=== PATIENT | female | born 1990 | race Two or more races ===

== ENCOUNTER → 2024-09-13 | Outpatient (CLI) | payer BC, SELFPAY ==
[2024-09-13 13:22] LABS: Alanine Aminotransferase 8 U/L (10-49); Albumin, Serum 4.5 gm/dL (3.5-5.0); Albumin/Globulin Ratio 1.6 (1.2-2.2); Alkaline Phosphatase 83 U/L (46-116); Anion Gap 7 (7-16); Aspartate Amino Transferase 16 U/L (0-34); BUN/Creatinine Ratio 11 Ratio (12-20); Bilirubin,Total 0.8 mg/dL (0.3-1.2); Blood Urea Nitrogen 9 mg/dL (9-23); Calcium 9.1 mg/dL (8.3-10.6); Calcium (Corrected) 9.1 mg/dL (8.5-10.1); Carbon Dioxide 25.5 mMol/L (20.0-31.0); Cardiac Risk Estimate 3.8 RATIO (3.7-5.6); Chloride 110 mMol/L (98-107); Cholesterol 192 mg/dL (132-200); Creatinine (Component) 0.8 mg/dL (0.6-1.3); Free T4 (Free Thyroxine) 1.18 ng/dL (0.89-1.76); Globulin 2.9 gm/dL (2.3-3.5); Glucose 97 mg/dL (74-106); HDL Cholesterol 51 mg/dL (40-60); LDL Cholesterol,Calculated 124 mg/dL (0-130); Osmolality,Calculated 281 (275-295); Potassium 4.4 mMol/L (3.4-5.1); Sodium 142 mMol/L (136-145); Thyroid Stimulating Hormone 4.21 uIU/mL (0.55-4.78); Total Protein 7.4 gm/dL (5.7-8.2); Triglycerides 87 mg/dL (30-150); eGFR > 60 See Note
[2024-09-19 07:02] LABS: Levetiracetam (Keppra)* 7.3 mcg/mL (6.0-46.0)
== END | disposition home or self-care (01) ==
LOC: COPL 10:55
PROVIDERS: PCP Family Medicine; Referring Provider Family Medicine; Visit Provider Family Medicine
DX: G40.301 Generalized idiopathic epilepsy and epileptic syndromes, not intractable, with status epilepticus (principal); E78.1 Pure hyperglyceridemia; E03.2 Hypothyroidism due to medicaments and other exogenous substances; Z13.1 Encounter for screening for diabetes mellitus
CPT/HCPCS: 36415; 80053; 80061; 80177; 84439; 84443

== ENCOUNTER → 2024-09-27 | Outpatient (CLI) | payer BC, SELFPAY ==
--- NOTE | 2024-09-27 15:20 | XR_ITS ---
Examination: Foot, left, 3 views Technique: AP, oblique, lateral views foot, 3 views Date and time of exam: September 27, 2024 1530 hours INDICATIONS: Left foot pain beginning 4 days ago FINDINGS: No fracture or dislocation No foreign body. No cortical bone destruction No erosive or other significant arthritic change IMPRESSION: No fracture No erosive or other significant arthritic change
== END | disposition home or self-care (01) ==
PROVIDERS: PCP Family Medicine; Referring Provider Family Medicine; Visit Provider Family Medicine
DX: M79.672 Pain in left foot (principal)
CPT/HCPCS: 73630

== ENCOUNTER → 2024-10-05 | Outpatient (CLI) | payer BC, SELFPAY ==
[2024-10-05 17:15] LABS: BVAG Candida Negative (Negative); Bacterial Vaginosis Markers Negative (Negative); Candida glabrata Negative (Negative); Candida krusei PCR Negative (Negative); Trichomonas Negative (Negative)
== END | disposition home or self-care (01) ==
LOC: SLDO 14:15
PROVIDERS: Referring Provider Specialist; Visit Provider Specialist
DX: A59.01 Trichomonal vulvovaginitis (principal); B37.89 Other sites of candidiasis; N76.0 Acute vaginitis
CPT/HCPCS: 81514

== ENCOUNTER → 2024-10-12 | Outpatient (CLI) | payer BC, SELFPAY ==
[2024-10-12 09:39] LABS: Basophils # (Auto) 0.1 Thou/mm3 (0.0-0.2); Basophils % (Auto) 1 % (0-2.5); Eosinophils # (Auto) 0.1 Thou/mm3 (0.0-0.5); Eosinophils % (Auto) 1 % (0-10); Hematocrit 32.9 % (36.0-46.0); Hemoglobin 10.2 g/dL (12.0-16.0); Immature Granulocytes % (Auto) 0 % (0-0); Immature Granulocytes Auto 0.02 Thou/mm3 (0.00-0.00); Lymphocytes # (Auto) 1.9 Thou/mm3 (1.0-4.8); Lymphocytes % (Auto) 21 % (10-50); Mean Corpuscular Hemoglobin 22.7 pg (25.0-35.0); Mean Corpuscular Volume 73 fL (80-100); Monocytes # (Auto) 0.7 Thou/mm3 (0.0-0.8); Monocytes % (Auto) 8 % (0-12); Neutrophils # (Auto) 6.1 Thou/mm3 (1.8-7.7); Neutrophils % (Auto) 69 % (37-80); Nucleated Red Blood Cell % 0 /100 WBC (0); Platelet Count 384 Thou/mm3 (140-440); RDW Standard Deviation 47.3 fL (36.4-46.3); Red Blood Count 4.49 Miln/mm3 (4.00-5.20); White Blood Count 8.8 Thou/mm3 (3.6-11.0)
[2024-10-12 09:45] LABS: Glucose Estimated Average 111 mg/dL (80-131); Hemoglobin A1C 5.5 % Hgb (4.8-6.0)
[2024-10-12 10:06] LABS: Alanine Aminotransferase 8 U/L (10-49); Albumin, Serum 4.7 gm/dL (3.5-5.0); Albumin/Globulin Ratio 1.6 (1.2-2.2); Alkaline Phosphatase 87 U/L (46-116); Anion Gap 12 (7-16); Aspartate Amino Transferase 18 U/L (0-34); BUN/Creatinine Ratio 13 Ratio (12-20); Beta HCG,Quantitative < 1 mIU/mL (<5.0); Bilirubin,Total 0.5 mg/dL (0.3-1.2); Blood Urea Nitrogen 10 mg/dL (9-23); Calcium 8.8 mg/dL (8.3-10.6); Calcium (Corrected) 8.8 mg/dL (8.5-10.1); Carbon Dioxide 25.5 mMol/L (20.0-31.0); Chloride 106 mMol/L (98-107); Creatinine (Component) 0.8 mg/dL (0.6-1.3); Free T4 (Free Thyroxine) 0.92 ng/dL (0.89-1.76); Globulin 2.9 gm/dL (2.3-3.5); Glucose 120 mg/dL (74-106); Osmolality,Calculated 284 (275-295); Potassium 3.6 mMol/L (3.4-5.1); Sodium 143 mMol/L (136-145); Thyroid Stimulating Hormone 16.18 uIU/mL (0.55-4.78); Total Protein 7.6 gm/dL (5.7-8.2); eGFR > 60 See Note
[2024-10-24 07:38] LABS: DHEA Sulfate* 79 mcg/dL (23-266); Estrogen, Total, Serum* 296 pg/mL; Luteinizing Hormone* 1.4 mIU/mL; Progesterone,LC/MS* 11.9 ng/mL; Prolactin* 14.8 ng/mL; Testosterone, Free,Dialysis 2.6 pg/mL (0.1-6.4); Testosterone, Total, Dialysis 21 ng/dL (2-45)
== END | disposition home or self-care (01) ==
LOC: COPL 08:31
PROVIDERS: PCP Family Medicine; Referring Provider Specialist; Visit Provider Specialist
DX: N93.9 Abnormal uterine and vaginal bleeding, unspecified (principal)
CPT/HCPCS: 36415; 80053; 82627; 82672; 83001; 83002; 83036; 84144; 84146; 84402; 84403; 84439; 84443; 84702; 85025

== ENCOUNTER → 2024-11-24 | Outpatient (CLI) | payer BC, SELFPAY ==
--- NOTE | 2024-11-24 10:56 | XR_ITS ---
Examination: Abdomen AP single view Technique: AP portable supine abdomen, single view Exam date and time: November 24, 2024 1115 hours INDICATIONS: Abdominal pain beginning 10 days ago FINDINGS: Moderate stool throughout the colon. No obstruction No free air IMPRESSION: Nonobstructive bowel gas pattern
[2024-11-24 11:28] LABS: Free T4 (Free Thyroxine) 1.12 ng/dL (0.89-1.76); Thyroid Stimulating Hormone 8.63 uIU/mL (0.55-4.78)
== END | disposition home or self-care (01) ==
LOC: CDIM 10:23
PROVIDERS: PCP Family Medicine; Referring Provider Family Medicine; Visit Provider Family Medicine
DX: R10.11 Right upper quadrant pain (principal); E03.2 Hypothyroidism due to medicaments and other exogenous substances
CPT/HCPCS: 36415; 74018; 84439; 84443

== ENCOUNTER 2024-12-20 05:35 | Day surgery (SDC) | payer BC, SELFPAY ==
--- NOTE | 2024-12-17 14:05 | ESHP_ITS ---
RE: OBDULIA PACHECO : 1990 DATE OF ADMISSION: 12/20/2024 HISTORY OF PRESENT ILLNESS: This is a 33-year-old who has abnormal uterine bleeding and a submucous myoma. She also has iron deficiency anemia. She presents for removal of submucous myoma and endometrial ablation. The patient declines future fertility. ALLERGIES: PENICILLIN. PAST MEDICAL HISTORY: Seizure disorder, pituitary adenoma, polycystic ovarian disease, subclinical hypothyroidism, iron deficiency anemia. PAST SURGICAL HISTORY: Transsphenoidal partial hypophysectomy for prolactinoma. MEDICATIONS: 1. Keppra 1000 mg one p.o. b.i.d. 2. Levothyroxine 25 mcg one p.o. daily. SOCIAL HISTORY: The patient denies any alcohol, drug use or smoking. She has a same-sex partner. FAMILY HISTORY: Ovarian cancer, skin cancer, diabetes, hypertension, hypothyroidism, lymphoma, and bone cancer, delivery in 2019. OBSTETRIC HISTORY: In 04/2019, 40-week, delivery. REVIEW OF SYSTEMS: She denies any chest pain, palpitations, cough, fever, or shortness of breath or lower extremity pain. She denies any headache, change in vision or right upper quadrant pain. PHYSICAL EXAMINATION: VITAL SIGNS: Blood pressure 110/70, heart rate 88, respirations 18, temperature 98.6. HEENT: Oropharynx and sclerae are clear. LUNGS: Clear to auscultation bilaterally. HEART: Regular rate and rhythm. ABDOMEN: Nontender. Old Pfannenstiel scar noted. EXTREMITIES: Nontender. SKIN: No gross rashes or lesions. NEUROLOGIC: No focal deficits. ASSESSMENT AND PLAN: Abnormal uterine bleeding, submucous myoma. PLAN: Hysteroscopy, MyoSure removal of submucous myoma, fractional dilatation and curettage, and NovaSure endometrial ablation. Informed consent was obtained. The patient made aware of the risks, complications, alternatives, and benefits of the proposed procedure. She agrees. She is aware of the risk of injury to bowel or bladder, adjacent organs, pulmonary embolism, deep vein thrombosis, pelvic infection, reoperation to repair injury to internal organs, anesthesia complications, possibility that a laparotomy needs to be performed to repair organs or controlled bleeding and the possibility of the procedure is not able to be completed. Due to severe adhesions or technical difficulties, she verbalized understanding and agrees to proceed with the procedure with an understanding of the risks and complications. DT: 13:06:08 TT: 13:57:00 Ref: [id number] - TID: [id number] MTDShawn
[2024-12-19 08:32] VITALS: BMI 35.9
[2024-12-19 09:21] LABS: Basophils # (Auto) 0.0 Thou/mm3 (0.0-0.2); Basophils % (Auto) 1 % (0-2.5); Eosinophils # (Auto) 0.2 Thou/mm3 (0.0-0.5); Eosinophils % (Auto) 2 % (0-10); Hematocrit 33.1 % (36.0-46.0); Hemoglobin 9.8 g/dL (12.0-16.0); Immature Granulocytes Auto 0.01 Thou/mm3 (0.00-0.00); Lymphocytes # (Auto) 2.1 Thou/mm3 (1.0-4.8); Lymphocytes % (Auto) 33 % (10-50); Mean Corpuscular HGB Conc 29.6 g/dl (31.0-37.0); Mean Corpuscular Hemoglobin 21.8 pg (25.0-35.0); Mean Corpuscular Volume 74 fL (80-100); Monocytes # (Auto) 0.5 Thou/mm3 (0.0-0.8); Monocytes % (Auto) 7 % (0-12); Neutrophils # (Auto) 3.7 Thou/mm3 (1.8-7.7); Neutrophils % (Auto) 57 % (37-80); Nucleated Red Blood Cell # 0.00 Thou/mm3 (0.00-0.00); Nucleated Red Blood Cell % 0 /100 WBC (0); Platelet Count 372 Thou/mm3 (140-440); RDW Standard Deviation 47.7 fL (36.4-46.3); Red Blood Count 4.49 Miln/mm3 (4.00-5.20); White Blood Count 6.5 Thou/mm3 (3.6-11.0)
[2024-12-19 09:40] LABS: INR 1.0 (0.9-1.3); Partial Thromboplastin Time 25.5 Seconds (22.0-36.0); Prothrombin Time 10.8 Seconds (9.0-12.2)
[2024-12-19 09:48] LABS: Alanine Aminotransferase 14 U/L (10-49); Albumin, Serum 4.5 gm/dL (3.5-5.0); Albumin/Globulin Ratio 1.7 (1.2-2.2); Alkaline Phosphatase 83 U/L (46-116); Anion Gap 10 (7-16); Aspartate Amino Transferase 20 U/L (0-34); BUN/Creatinine Ratio 11 Ratio (12-20); Beta HCG,Quantitative < 1 mIU/mL (<5.0); Bilirubin,Total 0.5 mg/dL (0.3-1.2); Blood Urea Nitrogen 8 mg/dL (9-23); Calcium 9.6 mg/dL (8.3-10.6); Calcium (Corrected) 9.6 mg/dL (8.5-10.1); Carbon Dioxide 27.1 mMol/L (20.0-31.0); Chloride 107 mMol/L (98-107); Creatinine (Component) 0.7 mg/dL (0.6-1.3); Estimated Creatinine Clearance 110.7 mL/min (>60); Globulin 2.6 gm/dL (2.3-3.5); Glucose 101 mg/dL (74-106); Osmolality,Calculated 285 (275-295); Potassium 4.0 mMol/L (3.4-5.1); Sodium 144 mMol/L (136-145); Total Protein 7.1 gm/dL (5.7-8.2); eGFR > 60 See Note
[2024-12-20] VITALS (7 sets, daily range): BP systolic 128–145; BP diastolic 64–88; PULSE 81–98; RESP 14–20; TEMP 36.3–36.8; O2SAT 97–100; BMI 36.9
[2024-12-20] MEDS: RINGERS LACTATED 1000 ML 1,000 ML 30 ML IV (06:41)
--- NOTE | 2024-12-20 07:15 | CHAP ---
Visited briefly with patient and had a prayer for the upcoming procedure.
--- NOTE | 2024-12-20 08:04 | PD.GYNPROC ---
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 She was placed in the dorsal lithotomy position and prepped and draped you sterile fashion. A timeout was performed. A bivalve speculum was inserted. A single-tooth tenaculum was used to grasp the antilipid the cervix. The uterine cavity was sounded to 8.0 cm. The cervical length measured 3.0 cm. The cervix was dilated to accommodate the 5.5 mm Omni hysteroscope. Using the Aquilex system and normal saline as the distending media and the hysteroscopy was performed and 2 endometrial polyps were visualized in the uterine cavity. There were no submucous myomas visualized. The endometrial polyps were located at the 9 o'clock position in the mid fundal aspect of the uterus in the lower uterine segment. The broad-based polyp at the 8 o'clock position resembled a submucous myoma but was clearly a polyp. Using the MyoSure reach device the polypectomy was performed. The fluid deficit at the end of the MyoSure procedure was 0. The endocervix was curetted and specimen sent to pathology. The uterine cavity was curetted and specimen sent to pathology. The NovaSure catheter was plugged into the controller. It went through its purge cycle. The catheter was appropriately seated in the uterine cavity. The cavity length was 5.0 cm the cavity width was 2.6 cm the power setting was 72 W. The carbon oxide cavity integrity assessment test was performed. The the uterine cavity was intact. The controller was enabled and the ablation was performed for total of 2 minutes before the controller shut off. The array was retracted into the sheath and the catheter was removed from the uterine cavity. The array was redeployed and found to be complete and intact. There was bleeding at the anterior lip of the cervix at the site of the tenaculum and using the Bovie cautery hemostasis was achieved. There was no bleeding at the end of the procedure. All instruments were removed from the vagina. She was reversed from general anesthesia in supine position and transferred to the cover room in stable condition. She tolerated the procedure well. Counts were correct. I discussed with the patient's family the nature of her condition, the intraoperative findings, the expectation for recovery, all questions answered. Specimen: other (1. Endometrial polyps. 2. Endocervical curettings. 3. Endometrial curettings. ) Estimated blood loss (ml): 3 Findings: Grossly normal-appearing cervix and vagina. Uterus anteverted sounded to 8.0 cm Cervical length 3.0 cm Uterine cavity length was 5.0 cm Uterine cavity width was 2.6 cm Duration of ablation was 2 minutes and 0 seconds. Power setting 72 W Fluid deficit 0 Endometrial polyps: At 9 and 8:00 measuring approximately 5 mm x 5 mm each Complications: none Surgical staff Operation Date: 12/20/24 07:30 Case Staff Anesthesiologist: David Yañez Diagnosis Discharge Diagnosis (1) Status post endometrial ablation: Status: Acute (2) Abnormal uterine bleeding due to endometrial polyp: Status: Acute Problem List Completed Was Problem List Reviewed/Reconciled?: Yes
--- NOTE | 2024-12-20 08:10 | SUR.PHASEI ---
0810 Patient arrived to recovery resting comfortably [place], on oxygen 10L via oxy mask with an oral airway in place, breathing unlabored, vital signs stable, dressing intact peripad to vaginal area; no bleeding noted, report received from Lily VERONICA and Dr. Yañez/Nia SRNA
--- NOTE | 2024-12-20 09:15 | SUR.PHASEII ---
0915 Patient meets discharge criteria from recovery, awake and alert, breathing unlabored, vital signs stable, endorsed pain 4/10, per patient her pain is tolerable, declined pain medication, peripad intact; scant amount of blood noted, voided in the restroom prior to discharge, assisted with dressing into her clothing by her family member, discharge instructions given to patient and patients cousin, cousin signed discharge instructions. Patient given all her belongings prior to discharge, transported via wheelchair and left in a private vehicle.
== END 2024-12-20 09:15 | disposition home or self-care (01) ==
PROVIDERS: PCP Family Medicine; Referring Provider Specialist; Visit Provider Specialist
PROC: 0U5B8ZZ Destruction of Endometrium, Via Natural or Artificial Opening Endoscopic (ICD-10-PCS; CPT 58563; principal; 2024-12-20 07:30)
DX: N84.0 Polyp of corpus uteri (principal); D50.9 Iron deficiency anemia, unspecified
CPT/HCPCS: 58563; 36415; 80053; 84702; 85025; 85610; 85730; 86850; 86900; 86901; A4217; A4649; J0131; J1100; J2250; J2405; J2704; J3010; J7120; A9270

== ENCOUNTER → 2025-01-03 | Outpatient (CLI) | payer OTHER, SELFPAY ==
--- NOTE | 2025-01-03 13:00 | XR_ITS ---
Examination: Abdomen sonogram, complete Date and time of exam: January 03, 2025 1310 hours INDICATIONS: Upper abdominal pain beginning one month ago. Technique: Multiple real-time grayscale transabdominal sonographic images of the abdomen have been obtained. Findings: Cholelithiasis, normal gallbladder wall Normal common bile duct 0.2 cm Pancreatic head 2.2 cm Aorta not enlarged. Liver 12.8 cm fatty infiltration no focal liver lesions Normal hepatopedal portal venous flow Patent IVC Right kidney 11.6 cm cortex 1.2 cm Left kidney 10.6 cm cortex 2.0 cm Spleen 9.9 cm IMPRESSION: Cholelithiasis, negative for cholecystitis
== END | disposition home or self-care (01) ==
LOC: CDIM 12:52
PROVIDERS: PCP Family Medicine; Referring Provider Family Medicine; Visit Provider Family Medicine
DX: K80.20 Calculus of gallbladder without cholecystitis without obstruction (principal)
CPT/HCPCS: 76700

== ENCOUNTER → 2025-03-02 | Outpatient (CLI) | payer OTHER, SELFPAY ==
[2025-03-02 17:38] LABS: Free T4 (Free Thyroxine) 1.25 ng/dL (0.89-1.76); Thyroid Stimulating Hormone 2.89 uIU/mL (0.55-4.78)
== END | disposition home or self-care (01) ==
LOC: COPL 16:08
PROVIDERS: PCP Family Medicine; Referring Provider Family Medicine; Visit Provider Family Medicine
DX: E03.2 Hypothyroidism due to medicaments and other exogenous substances (principal)
CPT/HCPCS: 36415; 84439; 84443